=== PATIENT | female | born 1965 | race Caucasian/White ===

== ENCOUNTER → 2020-10-06 | Outpatient (CLI) | payer OTHER ==
[~2020-10-06] MED LIST: ASPIRIN PO; PROAIR DIGIHAL90 MCG INH; [UNRECOGNIZED DRUG - OTHER] PO
[2020-10-06 11:15] LABS: HEMOGLOBIN 15.2 gm/dl (12.3-15.3); RED BLOOD COUNT 4.97 M/UL (4.00-5.10); WHITE BLOOD COUNT 10.5 K/UL (4.5-11.0)
== END ==
LOC: OPSV2 10:14
PROVIDERS: Obstetrics & Gynecology
DX: Z01.812 Encounter for preprocedural laboratory examination (principal)
CPT/HCPCS: 36415; 81001; 85025

== ENCOUNTER → 2020-10-12 | Outpatient (CLI) | payer OTHER | LOC: CT 10-06 10:10 | DX: D38.0 Neoplasm of uncertain behavior of larynx (principal) | CPT/HCPCS: 70491; Q9967 ==

== ENCOUNTER 2021-04-19 07:55 | Observation (INO) | payer OTHER ==
[~2021-04-19] VITALS: Ht 165.1 cm; Wt 75.3 kg
[~2021-04-19 07:55] MED LIST changes: +CENTRUM SILVER1 EAC1 PO
[2021-04-19] MEDS ORDERED: LEVOFLOXACIN250 MG PO (08:45)
[2021-04-19] MEDS ORDERED: NAPROSYN500 MG PO (12:18)
[2021-04-19] MEDS ORDERED: POLYETHYLENE G500 G3 MC (12:18)
[2021-04-19] MEDS ORDERED: HYDROCODON-ACE1 EAC2 PO (12:18)
[2021-04-20] MEDS ORDERED: FAMOTIDINE40 MG PO (06:48)
== END 2021-04-20 10:20 | disposition home or self-care (01) ==
LOC: OR 07:55 → OB 13:41
PROVIDERS: ADMIT Obstetrics & Gynecology
DX: N99.3 Prolapse of vaginal vault after hysterectomy (principal); T18.5XXA Foreign body in anus and rectum, initial encounter; J44.9 Chronic obstructive pulmonary disease, unspecified; M19.90 Unspecified osteoarthritis, unspecified site; F17.210 Nicotine dependence, cigarettes, uncomplicated; Z90.710 Acquired absence of both cervix and uterus; Z98.51 Tubal ligation status; Z79.82 Long term (current) use of aspirin; Z79.899 Other long term (current) drug therapy; X58.XXXA Exposure to other specified factors, initial encounter
CPT/HCPCS: 71045; 93005; C1769; G0378; J0690; J0694; J1100; J1170; J2001; J2250; J2405; J2704; J2795; J3010; J7120

== ENCOUNTER 2021-04-30 06:03 | Emergency (ER) | payer OTHER ==
[~2021-04-30 06:03] MED LIST changes: +FAMOTIDINE40 MG PO; +HYDROCODON-ACE1 EAC2 PO; +LEVOFLOXACIN250 MG PO; +NAPROSYN500 MG PO; +POLYETHYLENE G500 G3 MC
[2021-04-30] MEDS ORDERED: HYDROXYZINE HCL25 MG PO (07:34)
[2021-04-30] MEDS ORDERED: PREDNISONE 50 M50 MG PO (20:42)
[2021-05-02] MEDS ORDERED: OMNICEF 300 MG300 MG PO (23:21)
[2021-05-02] MEDS ORDERED: HYDROCODON-ACE1 EAC1 PO (23:21)
== END 2021-04-30 07:35 | disposition home or self-care (01) ==
LOC: ER1 06:03
DX: L50.0 Allergic urticaria (principal); F17.210 Nicotine dependence, cigarettes, uncomplicated
CPT/HCPCS: 96372; 99282; J1100; J1200

== ENCOUNTER 2021-04-30 18:32 | Emergency (ER) | payer OTHER ==
[~2021-04-30 18:32] MED LIST changes: +HYDROXYZINE HCL25 MG PO
[2021-04-30] MEDS ORDERED: PREDNISONE 50 M50 MG PO (20:42)
[2021-05-02] MEDS ORDERED: OMNICEF 300 MG300 MG PO (23:21)
[2021-05-02] MEDS ORDERED: HYDROCODON-ACE1 EAC1 PO (23:21)
== END 2021-04-30 20:53 | disposition home or self-care (01) ==
LOC: ER1 18:32
DX: R21 Rash and other nonspecific skin eruption (principal); F17.200 Nicotine dependence, unspecified, uncomplicated
CPT/HCPCS: 96365; 96375; 99282; J1200